=== PATIENT | male | born 1955 | race Caucasian/White ===

== ENCOUNTER 2017-04-08 11:11 | Outpatient (CLI) ==
--- NOTE | 2017-04-08 12:39 | DI ---
EXAM: Two views of the chest. History: Cough. Findings: Heart size is within normal limits. Calcified granuloma within the left lower lobe. No f ocal consolidation. No appreciable pleural fluid and no pneumothorax. No acute osseous abnormalitie s. Central bronchial wall thickening. Impression: Central bronchial wall thickening suggesting bronchitis. No focal pneumonia.
== END 2017-04-08 11:12 | disposition home or self-care (01) ==
LOC: RAD 11:11
PROVIDERS: ATTEND Nurse Practitioner Family
DX: R50.9 Fever, unspecified (principal); R05 Cough
CPT/HCPCS: 87502